=== PATIENT | female | born 1970 | race Two or more races ===

== ENCOUNTER 2017-08-22 10:18 | Emergency (ER) | payer OTHER ==
[2017-08-22 10:22] VITALS: BP 122/77
[2017-08-22] MEDS ORDERED: TETRACAINE HCL 0.5% OPH SOLN 2 ML OS ONE (10:43)
--- NOTE | 2017-08-22 10:44 | ER Document Report ---
HPI - HPI Onset: Yesterday Onset/Duration: Sudden Quality of pain: Burning Pain Level: 3 Context: Patient states she was gardening yesterday and accidentally got poked in the eye by the stalk of a high draining. Patient complains of left eye tearing and pain. Associated Symptoms: Other - Left eye injury Exacerbated by: Denies Relieved by: Denies Similar symptoms previously: No Recently seen / treated by doctor: No - ROS ROS below otherwise negative: Yes Systems Reviewed and Negative: Yes All other systems reviewed and negative - CONSTITUTIONAL Constitutional: DENIES: Fever - EENT EENT: REPORTS: Eye problems - REPRODUCTIVE Reproductive: DENIES: : - DERM Skin Color: Normal Skin Problems: None Past Medical History - General Information source: Patient - Social History Smoking Status: Current Every Day Smoker Frequency of alcohol use: Occasional Drug Abuse: None Occupation: [employer] Family History: Reviewed & Not Pertinent - Past Medical History Cardiac Medical History: Reports: Hx Hypertension Psychiatric Medical History: Reports: Hx Bipolar Disorder, Hx Depression Past Surgical History: Reports: Hx Section - x2 - Immunizations Immunizations up to date: Yes Hx Diphtheria, Pertussis, Tetanus Vaccination: No Vertical Provider Document - CONSTITUTIONAL Agree With Documented VS: Yes Exam Limitations: No Limitations General Appearance: WD/WN, No Apparent Distress - INFECTION CONTROL TRAVEL OUTSIDE OF THE [place] IN LAST 30 DAYS: No - HEENT HEENT: Atraumatic, Normocephalic Notes: Patient with corneal abrasion to the 11 o'clock position with a fluorescein uptake, no ulcer, no dendrite, no foreign body. Extraocular movements intact. No concern for globe rupture at this time. Lid everted. - NECK Neck: Normal Inspection - RESPIRATORY Respiratory: No Respiratory Distress O2 Sat by Pulse Oximetry: 97 - MUSCULOSKELETAL/EXTREMETIES Musculoskeletal/Extremeties: MAEW - NEURO Level of Consciousness: Awake, Alert, Appropriate Motor/Sensory: No Motor Deficit - DERM Integumentary: Warm, Dry Course - Re-evaluation Re-evalutation: 08/22/17 10:[address] Vergara regarding patient presentation, recommends topical treatment with antibiotic and outpatient follow-up with ophthalmology. - Vital Signs Vital signs: Temp Pulse Resp BP Pulse Ox 97.9 F 56 L 16 122/77 97 08/22/17 10:21 08/22/17 10:21 08/22/17 10:21 08/22/17 10:21 08/22/17 10:21 Discharge - Discharge Clinical Impression: Corneal abrasion Qualifiers: Encounter type: initial encounter Laterality: left Qualified Code(s): S05.02XA - Injury of conjunctiva and corneal abrasion without foreign body, left eye, initial encounter Condition: Stable Disposition: HOME, SELF-CARE Instructions: Corneal Abrasion ([facility]), Eyedrop Use ([facility]) Additional Instructions: Follow-up with endoscopy tech for any continued pain or problems Return immediately for any new or worsening symptoms Prescriptions: Polymyxin B Sulfate/Tmp [Polytrim Oph Soln 10 ml] 1 drop LFT_EYE ASDIR #1 bottle Forms: Return to Work Referrals: KARISHMA GARCIA FNP [NURSE PRACTITIONER] - Follow up as needed [facility] [Provider Group] - Follow up as needed [facility] [Provider Group] - Follow up as needed
== END 2017-08-22 11:11 | disposition home or self-care (01) ==
LOC: ER 10:18
DX: S05.02XA Injury of conjunctiva and corneal abrasion without foreign body, left eye, initial encounter (principal); W22.8XXA Striking against or struck by other objects, initial encounter; Y93.H2 Activity, gardening and landscaping; Y92.007 Garden or yard of unspecified non-institutional (private) residence as the place of occurrence of the external cause; F17.200 Nicotine dependence, unspecified, uncomplicated; I10 Essential (primary) hypertension
CPT/HCPCS: 99283